=== PATIENT | female | born 1990 | race Asian ===

== ENCOUNTER 2016-10-20 13:07 | Emergency (ER) | payer MEDICAID ==
[~2016-10-20] VITALS: Ht 152.4 cm; Wt 41.1 kg
[2016-10-20 13:48] VITALS: Ht 152.4 cm; Wt 41.1 kg
[2016-10-20] MEDS ORDERED: CETI-269 PO (14:20)
[2016-10-20] MEDS ORDERED: MENT222L TOP (14:20)
[2016-10-20] MEDS ORDERED: METH4TAB3 PO (14:40)
--- NOTE | 2016-10-20 14:40 | ERPDOC ---
Departure Disposition Decision Date: Oct 20, 2016 Disposition Decision Time: 14:38 Disposition: 01 DISCHARGED HOME, SELF-CARE Impression Impression Impression: Primary Impression: Contact dermatitis Contact dermatitis type: unspecified Contact dermatitis trigger: unspecified trigger Qualified Codes: L25.9 - Unspecified contact dermatitis, unspecified cause Severity: Mild Condition: Stable Seen By: Physician only Referrals: Your Doctor Patient Instructions: Acute Rash (ED) Problems/Meds/Labs Reviewed?: Yes Medications reviewed and manag: Yes Follow up care ordered?: Yes Mental Status: Alert, Oriented Scripts Methylprednisolone (Medrol) 4 Mg Tab.ds.pk 4 MG PO DIRECTED for Contact Dermatitis, #1 0 Refills Prov: PAUL ARRIAGA DO 10/20/16 HPI - Skin General General Chief Complaint: Skin Rash/Abscess Stated Complaint: FACIAL RASH Time Seen by Provider: 14:12 Source: patient (Patient presents to the ER with a 2-3 day complaint of rash, primarily to her forearms, but has now spread to her face, with edena periorbitally. Patient is unsure what the cause is, but thinks it may be a chemical on the towel she uses. Patient denies F/C/N/V/D or vision changes. ) Exam Limitations: no limitations HPI - Skin General Occurred At: home Onset: Changing over time Duration: 1 week Pain Scale: Now & Worst: 0/10 Severity: mild Location: face, extremities Possible Cause: other Modifying Factors: IMPROVES WITH: antihistamine, other Associated Symptoms: edema, other, DENIES: blisters, change in skin texture, fever, flushing, headache, hives, jaundice, malaise, nasal congestion, numbness , pallor, paresthesia, petechiae, rash, sore throat, swelling/mass/lumps, tingling Hx of Similar Symptoms: Yes Allergies: Coded Allergies: No Known Allergies (Unverified , 10/20/16) Past History Past Medical History Pt denies signifigant PMH Hx Echocardiogram: No Surgical History Denies Surgeries Family History Family History: Negative Social History Smoking Status: Never smoker Does patient use chewing tobac: No Substance Use Type: does not use Alcohol Intake: none Marital Status: Single Housing: house Service: No Current Occupational Status: employed Occupational Hazard: No Advance Directives: Yes Full Code Record Review Pertinent history updated: Yes Review of Systems Constitutional Constitutional: DENIES: chills, fever Eyes Lids/Accessories: DENIES: erythema, swelling ENMT Ears: DENIES: erythema, pain Balance: DENIES: ataxia, vertigo Sinuses: DENIES: congestion, rhinorrhea Mouth/Throat: DENIES: sore throat Cardiovascular Cardiac: DENIES: chest pain, dyspnea on exertion, orthopnea Rhythm/Rate: DENIES: tachycardia Pulmonary Respiratory: DENIES: cough, dyspnea, sputum GI Upper Abdomen: DENIES: nausea, pain, vomiting Lower Abdomen: DENIES: constipation, diarrhea, pain General: DENIES: dysuria Musculoskeletal General: DENIES: cramps, pain, weakness Integumentary Skin: DENIES: color change, itching, rash Neurological General: DENIES: ataxia, change in strength, headache, numbness, poor coordination, seizures, syncope, vertigo, weakness Psychiatric Psychiatric: DENIES: anxiety, depression, nervousness Hematologic/Lymphatic Hematologic/Lymphatic: DENIES: anemia Allergic/Immunological Allergic/Immunoligical: DENIES: sneezing All other Systems All Other Systems: Reviewed and Negative Physical Exam General General Nourishment: well nourished, well developed, appears stated age, adult , thin General Body Habitus: well groomed Vitals and Pain First Documented Vital Signs Date Time Temp Pulse Resp B/P Pulse Ox O2 Delivery O2 Flow Rate FiO2 10/20/16 13:48 98.5 80 14 122/71 100 Room Air Weight: Kilograms: 41.100 Height (feet): 5 Height (inches): 0 Triage Pain Scale: RN VS reviewed by Provider: Yes Eyes (brief) Eyes Brief: found: EOMI, PERRL, other (Mild Periorbital edema) ENMT (brief) ENMT Brief: FOUND: TM clear, TM good light reflex, mucosa moist, NOT FOUND: pharnyx erythema Neck (brief) Neck: FOUND: trachea midline, NOT FOUND: adenopathy, nuchal rigidity, tenderness, tracheal deviation Respiratory (brief) Respiratory: FOUND: clear all abraham, equal bilaterally Cardiovascular (brief) Cardiac: FOUND: regular rate, regular rhythm Capillary Refill: <2 sec Pulses: all distal extremities, equal, strong Abdomen (brief) Abdominal Brief: FOUND: bowel normo active x4, soft, NOT FOUND: distended, tender Lymphatic (brief) Lymphatic Brief: NOT FOUND: adenopathy Musculoskeletal (brief) Musculoskeletal Brief: NOT FOUND: spasm, tenderness Integumentary (brief) Integumentary Brief: FOUND: other (Mild Blanchable Erythematous rash to bilateral forearms and face), pink, warm Neurologic (brief) Neurological Brief: FOUND: CN w/o gross def to obs, DTR 2/4 all extremities, gait w/o gross def to obs, motor-no gross deficits, sensory-no gross deficits, NOT FOUND: ataxia Psychiatric (brief) Psychiatric Brief: FOUND: alert, attentive, normal affect, oriented Differential Diagnoses Considering: Chemical Burn, Thermal Burn, Cellulitis, Hives/Urticaria, Viral Exanthem, Other Progress Results/Orders Orders Procedure Category Date Status Time Prednisone PHA 10/20/16 Complete (Prednisone) 14:45 Medications Current ED Medications Prednisone (PredniSONE) 40 mg O ONCE PO Last administered on 10/20/16t 14:55; Start 10/20/16 at 14:45; Stop 10/20/16 at 14:46; Status DC PUAL ARRIAGA DO Oct 20, 2016 14:40
[2016-10-20] MEDS ORDERED: PredniSONE 10 MG TABLET PO ONE (14:45)
[2016-10-20 14:55] VITALS: BP 118/69; PULSE 75; RESP 14; TEMP 98.5; O2SAT 100
== END 2016-10-20 14:55 | disposition home or self-care (01) ==
LOC: ED 13:07
DX: L25.9 Unspecified contact dermatitis, unspecified cause (principal)
CPT/HCPCS: 99283; J7512